=== PATIENT | male | born 1955 | race Caucasian/White ===

== ENCOUNTER 2019-04-22 06:57 | Day surgery (SDC) | payer OTHER ==
[2019-04-22] MEDS ORDERED: ONDANSETRON HCL INJ/PF 4 MG/2 ML SDV ONE (07:16)
[2019-04-22] MEDS ORDERED: DIPHENHYDRAMINE HCL 50 MG/ML VIAL ONE (07:16)
[2019-04-22] MEDS ORDERED: NALOXONE HCL INJ/PF 0.4 MG/1 ML SDV ONE (07:16)
[2019-04-22] MEDS ORDERED: FLUMAZENIL INJ 0.5 MG/5 ML VIAL ONE (07:16)
[2019-04-22] MEDS ORDERED: GLUCAGON,HUMAN RECOMB 1 MG INJ ONE (07:16)
[2019-04-22] MEDS ORDERED: EPINEPHRINE INJ 1 MG/10 ML DISP.SYRIN ONE (07:16)
[2019-04-22] MEDS: FENTANYL CITRATE INJ/PF 100 MCG/2 ML AMPUL ONE ×3 (07:41→07:50)
[2019-04-22] MEDS: MIDAZOLAM 2 MG/2 ML INJ ONE ×4 (07:41→07:54)
--- NOTE | 2019-04-22 08:38 | Operative Report ---
Nonrecallable Operative Report DATE OF SURGERY: 04/22/19 Operative Report: screening colonoscopy PREOPERATIVE DIAGNOSIS: screening colonoscopy POSTOPERATIVE DIAGNOSIS: colonic polyp x2 removed OPERATION: colonoscopy iwth biopsy SURGEON: LIGIA BATISTA ANESTHESIA: Moderate Sedation TISSUE REMOVED OR ALTERED: Splenic flexure polyp cold biopsy removed. Sigmoid colon polyp cold biopsy removed. COMPLICATIONS: None ESTIMATED BLOOD LOSS: 0 INTRAOPERATIVE FINDINGS: 2 diminutive polyps one in the splenic flexure one in the sigmoid colon both cold biopsy removed. PROCEDURE: Patient was brought to the endoscopy suite awake alert stable condition placed on the endoscopy table left lateral decubitus position given IV sedation using fentanyl and Versed after appropriate timeout and site verification the procedure commenced. The Olympus colonoscope was passed into the rectum and easily traversed the sigmoid colon to the descending colon and up to the splenic flexure transverse colon to the hepatic flexure down the ascending colon to the cecum the cecum was visualized. As we slowly withdrew the scope we examined the ascending colon hepatic flexure all appeared to be normal transverse colon also appeared to be normal as we reached the splenic flexure there was a poin 2 cm polyp that was diminutive in size it was cold biopsied and completely removed it was sent to pathology. Hemostasis was intact. As we then came down the descending colon that appeared to be normal until we reached the sigmoid colon where there was a another small diminutive polyp and using cold biopsy forceps it was completely removed and was sent to pathology. We then slowly traversed the rectum there was no evidence of mucosal abnormalities in the rectum. The scope was then removed. Findings polyps x2 diminutive in size both 0.2 cm in diameter both removed with cold biopsy forceps. Await pathology findings patient will follow-up in clinic in 2 to 3 weeks.
--- NOTE | 2019-04-22 08:40 | Discharge Summary ---
Discharge Summary (SDC) - Discharge Final Diagnosis: Colonic polyps x2 Date of Surgery: 04/22/19 Discharge Date: 04/22/19 Condition: Good Referrals: IRINA CORNEJO MD [Primary Care Provider] - Discharge Diet: As Tolerated - Patient to follow-up in surgical clinic with me in 2 to 3 weeks Respiratory Treatments at Home: Deep Breathing/Coughing Discharge Activity: Activity As Tolerated, No Driving Home Care Assistance: None Needed Report the Following to Your Physician Immediately: Shortness of Breath, Nausea, Vomiting, Increase in Pain, Fever over 101 Degrees, Unusual Bleeding, IV Site Infection Signs
[2019-04-22 09:11] VITALS: BP 118/61
== END 2019-04-22 09:22 | disposition home or self-care (01) ==
LOC: END 06:57
PROVIDERS: ATTEND Surgery
DX: Z12.11 Encounter for screening for malignant neoplasm of colon (principal); D12.6 Benign neoplasm of colon, unspecified; D12.5 Benign neoplasm of sigmoid colon; Z86.010 Personal history of colon polyps; E05.90 Thyrotoxicosis, unspecified without thyrotoxic crisis or storm; E78.00 Pure hypercholesterolemia, unspecified; I10 Essential (primary) hypertension; K62.5 Hemorrhage of anus and rectum; K64.8 Other hemorrhoids; E11.9 Type 2 diabetes mellitus without complications; Z79.899 Other long term (current) drug therapy; Z79.82 Long term (current) use of aspirin; Z79.84 Long term (current) use of oral hypoglycemic drugs
CPT/HCPCS: 45380; 82962; 88305 ×2; J2250; J3010; J0171; J1200; J1610; J2310; J2405; J3490